=== PATIENT | female | born 1940 | race Caucasian/White ===

== ENCOUNTER 2023-11-05 12:51 | Emergency (ER) | payer MEDICARE, OTHER ==
[~2023-11-05] VITALS: Ht 157.5 cm; Wt 72.5 kg
[2023-11-05] MEDS ORDERED: HYDR-4798 PO (14:41)
[2023-11-05] MEDS: HYDROmorphone HCL 2 MG/ML VL/or syr IM ONE (14:47)
[2023-11-05 14:49] VITALS: TEMP 99; O2SAT 100
[2023-11-05 15:18] VITALS: BP 148/69; PULSE 89; RESP 17
== END 2023-11-05 15:22 | disposition home or self-care (01) ==
LOC: ER 12:51
DX: M54.50 Low back pain, unspecified (principal); G89.29 Other chronic pain; E11.9 Type 2 diabetes mellitus without complications; I10 Essential (primary) hypertension
CPT/HCPCS: 96372; 99283; J1170